=== PATIENT | male | born 1995 | race Two or more races ===

== ENCOUNTER 2022-07-10 06:17 | Day surgery (SDC) | payer MEDICAID, OTHER ==
[~2022-07-10] VITALS: Ht 165.1 cm; Wt 63.5 kg
[~2022-07-10 06:17] MED LIST: ACET1CAP14 PO; HYDR-4902 PO
[2022-07-10] MEDS ORDERED: ceFAZolin 1GM/50ML 100 ML IV ONE (06:34)
[2022-07-10] MEDS ORDERED: VANCOMYCIN HCL 1000 MG VL ONE (06:52)
[2022-07-10] MEDS ORDERED: TRANEXAMIC ACID 10 ML ONE (06:52)
[2022-07-10] MEDS ORDERED: BUPIVACAINE 0.25% INJ 50ML VIAL ONE (06:52)
[2022-07-10] MEDS ORDERED: MEPERIDINE HCL (50 MG/ML) 1 ML VIAL ONE ×2 (07:24→08:14)
[2022-07-10] MEDS ORDERED: MIDAZOLAM HCL 2MG/2ML 2ml VIAL (1mg/ml) ONE (07:24)
[2022-07-10] MEDS ORDERED: fentaNYL CITRATE 100 MCG/2 ML VL ONE (07:24)
[2022-07-10] MEDS ORDERED: diphenhdrAMINE HCL 50 MG/1 ML VL ONE (07:41)
[2022-07-10] MEDS ORDERED: PROPOFOL 10 MG/ML 20 ML IV ONE (07:41)
[2022-07-10] MEDS ORDERED: DexAMETHasone SOD PHOS 10MG/1ML VIAL INJ ONE (07:41)
[2022-07-10] MEDS ORDERED: LIDOCAINE 2% JELLY 11ml (GLYDO) ONE (07:43)
[2022-07-10] MEDS ORDERED: MIDAZOLAM HCL 2MG/2ML 2ml VIAL (1mg/ml) IV PRN (08:30)
[2022-07-10] MEDS ORDERED: ONDANSETRON HCL 4 MG/2 ML VIAL IV PRN (08:30)
[2022-07-10] MEDS ORDERED: LABETALOL HCL 5 MG/ML 4ML SYRINGE IV PRN (08:30)
[2022-07-10] MEDS ORDERED: MORPHINE SULFATE 4 MG/ML SYR/VIAL IV PRN (08:30)
[2022-07-10] MEDS ORDERED: ePHEDrine SULFATE 50 MG/ML AMP IV PRN (08:30)
[2022-07-10] MEDS ORDERED: fentaNYL CITRATE 100 MCG/2 ML VL IV PRN (08:30)
[2022-07-10] MEDS ORDERED: KETOROLAC TROMETH 30 MG/ML 1ML VIAL IV ONE (08:30)
[2022-07-10] MEDS: HYDROmorphone HCL 2 MG/ML VL/or syr IV PRN ×2 (09:50→10:05)
[2022-07-10 10:54] VITALS: BP 136/91
== END 2022-07-10 11:06 | disposition home or self-care (01) ==
LOC: SUR 06:17
PROVIDERS: ATTEND Orthopaedic Surgery
DX: S82.841A Displaced bimalleolar fracture of right lower leg, initial encounter for closed fracture (principal); V89.2XXA Person injured in unspecified motor-vehicle accident, traffic, initial encounter; Y93.89 Activity, other specified; Y92.89 Other specified places as the place of occurrence of the external cause; Y99.8 Other external cause status
CPT/HCPCS: 27814; 73600; 76000; C1713; C1769; J0690; J1100; J1170; J1200; J2175; J2250; J2704; J3010; J3490